=== PATIENT | male | born 1990 | race Caucasian/White ===

== ENCOUNTER 2022-01-16 01:01 | Day surgery (SDC) | payer OTHER ==
[2022-01-16 01:05] VITALS: BMI 33.0
[2022-01-16] MEDS ORDERED: ACETAMINOPHEN 1000 MG/100 ML BAG IVPB ONE (01:42)
[2022-01-16] MEDS ORDERED: SODIUM CHLORIDE 1,000 ML IV STA (01:42)
[2022-01-16] MEDS ORDERED: ACETAMINOPHEN INJECTION 100 ML IVPB ONE ×2 (01:43→12:03)
[2022-01-16] MEDS ORDERED: KETOROLAC TROMETHAMINE 30 MG/1 ML VIAL ONE (02:13)
[2022-01-16] MEDS ORDERED: KETOROLAC TROMETHAMINE 30 MG/1 ML VIAL IVPUSH ONE (02:13)
[2022-01-16] MEDS ORDERED: morphine CARPU-JECT 2 MG/1 ML DISP.SYRIN IVPUSH ONE (02:27)
[2022-01-16] MEDS ORDERED: morphine SULFATE 4 MG/ML VIAL ONE (02:45)
[2022-01-16 02:49] LABS: BASO % 0.2 % (0-2.0); EOS % 0.3 % (0-4.5); HEMATOCRIT 44.6 % (35.4-49); HEMOGLOBIN 15.3 GM/dL (11.7-16.9); MCH 28.7 pg (25.7-33.7); MCHC 34.3 g/dl (32.0-35.9); MEAN CELL VOLUME 83.6 fl (80-96); MEAN PLT VOLUME 8.6 fl (7.5-11.1); MONO % 5.9 % (3.8-10.2); NEUT % 69.6 % (42.8-82.8); PLATELET COUNT 254 10^3/uL (134-434); RBC 5.34 M/mm3 (4.00-5.60); RDW 13.9 % (11.9-15.9); WHITE BLOOD COUNT 7.9 K/mm3 (4.0-10.0)
[2022-01-16 02:51] LABS: PH,URINE 8.5 (5.0-8.0); URINE APPEARANCE TURBID; URINE BILIRUBIN NEGATIVE (NEGATIVE); URINE COLOR YELLOW; URINE GLUCOSE (UA) NEGATIVE (NEGATIVE); URINE KETONE NEGATIVE (NEGATIVE); URINE LEUK ESTERASE NEGATIVE (NEGATIVE); URINE NITRITE NEGATIVE (NEGATIVE); URINE PROTEIN NEGATIVE (NEGATIVE); URINE UROBILINOGEN 0.2 mg/dL (0.2-1.0)
[2022-01-16 03:01] LABS: PROTHROMBIN TIME (PATIENT) 11.5 SEC (9.7-13.0)
[2022-01-16 03:16] LABS: BLOOD UREA NITROGEN 9.9 mg/dL (7-18); CALCIUM 9.6 mg/dL (8.5-10.1)
[2022-01-16 03:21] LABS: BILIRUBIN,TOTAL 0.3 mg/dL (0.2-1); TOT PROT 7.1 g/dl (6.4-8.2)
[2022-01-16 03:26] LABS: CREATININE 0.8 mg/dL (0.55-1.3)
[2022-01-16] MEDS ORDERED: LIDOCAINE HCL 1%, 10 MG/ML (20ML VIAL) ONE (09:18)
[2022-01-16] MEDS ORDERED: BUPIVACAINE HCL 100 ML ONE (09:19)
[2022-01-16] MEDS ORDERED: SUCCINYLCHOLINE CHLORIDE 200 MG/10 ML SYRINGE ONE (10:24)
[2022-01-16] MEDS ORDERED: MIDAZOLAM HCL 2 MG/2 ML SINGLE DOSE VIAL ONE (10:24)
[2022-01-16] MEDS ORDERED: PROPOFOL 20 ML ONE ×2 (10:24)
[2022-01-16] MEDS ORDERED: fentaNYL CITRATE 250 MCG/5 ML VIAL ONE (10:24)
[2022-01-16] MEDS ORDERED: ROCURONIUM BROMIDE 50 MG/5 ML SYRINGE ONE ×3 (10:24→10:26)
[2022-01-16] MEDS ORDERED: ACETAMINOPHEN 1000 MG/100 ML BAG IVPB PRN (10:29)
[2022-01-16] MEDS ORDERED: LACTATED RINGERS SOLUTION 1,000 ML/1,000 ML INFUS.BAG IV SCH (10:30)
[2022-01-16] MEDS ORDERED: TRIAMCINOLONE ACET 40MG/1ML VIAL ONE (10:50)
[2022-01-16] MEDS ORDERED: NEOSTIGMINE METHYLSULFATE 0.5 MG/1 ML - 10 ML MDV ONE (11:19)
[2022-01-16] MEDS ORDERED: oxyCODONE HCL 5 MG TABLET PO PRN (11:44)
[2022-01-16] MEDS ORDERED: LACTATED RINGERS SOLUTION 1,000 ML IV SCH (11:45)
[2022-01-16] MEDS ORDERED: ONDANSETRON 4 MG/2 ML VIAL IVPUSH PRN (11:45)
[2022-01-16 18:08] VITALS: BP 137/87; PULSE 98; TEMP 98.6
== END 2022-01-16 19:02 | disposition home or self-care (01) ==
LOC: FER 01:01 → FM/S 03:58 → UNDOADMIN 03:58 → FASUSAT 11:10 → FM/S 12:57 → FASUSAT 12:57 → FM/S 13:06 → FASUSAT 18:55
PROVIDERS: ATTEND Nurse Practitioner Acute Care
PROC: 0WQF0ZZ Repair Abdominal Wall, Open Approach (ICD-10-PCS; principal; 2022-01-16 10:49)
DX: K43.1 Incisional hernia with gangrene (principal)
CPT/HCPCS: 36415; 74176-TC; 80053; 81003; 85025; 85610; 86850; 86900; 86901; 88302-TC; 94760; 99285-25; C9803-CS; U0003; U0005